=== PATIENT | female | born 1975 | race Caucasian/White ===

== ENCOUNTER 2021-07-03 15:09 | Emergency (ER) | payer BC ==
[~2021-07-03] VITALS: Ht 157.5 cm; Wt 62.6 kg
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
[2021-07-03] MEDS ORDERED: TDAP DIPH,PERTUSS,TET VAC/PF 0.5 ML DISP.SYRIN IM ONE (16:15)
--- NOTE | 2021-07-03 18:40 | NUR ---
ABRASION ON LEFT HAND PINKY FINGER CLEANSED AND STERISTRIPS APPLIED PER DR TATUM. SPLINT (PRE MADE, REMOVABLE) APPLIED
--- NOTE | 2021-07-03 19:13 | NUR ---
DC AND F/U INSTRUCTIONS GIVEN AND EXPLAINED TO PATIENT WHO STATES SHE UNDERSTANDS ALL INSTRUCTIONS
== END 2021-07-03 19:15 | disposition home or self-care (01) ==
LOC: ER 15:09
DX: S09.90XA Unspecified injury of head, initial encounter (principal); S61.217A Laceration without foreign body of left little finger without damage to nail, initial encounter; S80.212A Abrasion, left knee, initial encounter; V49.40XA Driver injured in collision with unspecified motor vehicles in traffic accident, initial encounter; Y92.414 Local residential or business street as the place of occurrence of the external cause; R51.9 Headache, unspecified
CPT/HCPCS: 70450; 73130; A4663